=== PATIENT | male | born 1985 | race Caucasian/White ===

== ENCOUNTER → 2023-10-13 | Outpatient (CLI) | payer OTHER ==
--- NOTE | 2023-10-13 12:40 | FL ---
EXAMINATION TYPE: FL small bowel follow through DATE OF EXAM: 10/13/2023 CLINICAL HISTORY: 38-year-old male R10.84, generalized abdominal pain, long-standing history of nause a/vomiting, abdominal pain, and cramping TECHNIQUE: A single contrast small bowel follow through is performed utilizing barium. Total fluoroscopy time 1 minute 15 seconds. Total images: 25. Total DAP: 15 mGycm2. COMPARISON: None FINDINGS: [employer] image of the abdomen shows no gross abnormality. There is [id number] stool. The small bowel study shows normal transit to the colon in less than 45 minutes (lower end of the nor mal range). There is a normal mucosal fold pattern throughout the small bowel. There is no evidence of any stricture or filling defect noted. The terminal ileum is spotted and appears unremarkable. IMPRESSION: Normal small bowel follow through. Small bowel transit time just under 45 minutes, lowe r end of the normal range.
== END | disposition home or self-care (01) ==
LOC: RADFLMAIN 08:15
PROVIDERS: ATTEND Internal Medicine Gastroenterology
DX: R10.84 Generalized abdominal pain (principal); R11.2 Nausea with vomiting, unspecified
CPT/HCPCS: 74250